=== PATIENT | male | born 1990 | race Two or more races ===

== ENCOUNTER 2023-08-22 19:28 | Emergency (ER) | payer SELFPAY ==
[~2023-08-22] VITALS: Ht 170.2 cm; Wt 90.9 kg
[2023-08-22 19:38] VITALS: BP 118/71; PULSE 94; RESP 20; TEMP 98
== END 2023-08-22 22:18 | disposition left against medical advice (07) ==
LOC: EMS 19:28
DX: Z53.21 Procedure and treatment not carried out due to patient leaving prior to being seen by health care provider (principal)